=== PATIENT | male | born 1990 | race Caucasian/White ===

== ENCOUNTER 2025-02-13 16:09 | Emergency (ER) | payer MEDICAID, SELFPAY ==
[2025-02-13 16:56] VITALS: BP 127/79; PULSE 75; RESP 20; TEMP 36.7; O2SAT 97; BMI 20.9
--- NOTE | 2025-02-13 17:20 | EKG_ITS ---
[facility] Test Date: 2025-02-13 Pat Name: JAKE BARTH Department: Room: - Gender: Male [employer] Work[employer]: : 1990 Requested By: Lisset Zarate ([facility]) Cecy Order Number: [id number] Reading MD: Lisset Zarate ([facility]) Cecy Measurements Intervals [place] Rate: 79 P: 56 CO: 129 QRS: 77 QRSD: 99 T: 68 QT: 364 QTc: 418 Interpretive Statements SINUS RHYTHM WITH SINUS ARRHYTHMIA No previous ECG available for comparison /[id number]/S0/[id number].pdf
--- NOTE | 2025-02-13 17:23 | PD.EDRME ---
Rapid Medical Screening Exam RME Arrival date/time: 02/13/25 16:09 34-year-old male was sent over by his PCP for evaluation of possible incarcerated inguinal hernia. Patient reports he has had this inguinal hernia for 4 years. Worsening symptoms and pain for the last 3 days unable to reduce. I have greeted and performed a focused initial assessment of this patient. Initial appropriate labs ordered at this time. A comprehensive ED assessment and evaluation of the patient and analysis of all test and completion of medical decision making process will be conducted by additional ED provider. Chief Complaint: Back Pain/Injury Time Seen by Provider: 02/13/25 16:22 Vital signs: Vital Signs Temperature 98.0 F 02/13/25 16:56 Pulse Rate 75 02/13/25 16:56 Respiratory Rate 20 02/13/25 16:56 Blood Pressure 127/79 02/13/25 16:56 Pulse Oximetry (%) 97 02/13/25 16:56 Oxygen Delivery Method Room Air 02/13/25 16:56
[2025-02-13 17:50] LABS: Basophils # (Auto) 0.0 Thou/mm3 (0.0-0.2); Basophils % (Auto) 0 % (0-2.5); Eosinophils # (Auto) 0.2 Thou/mm3 (0.0-0.5); Eosinophils % (Auto) 2 % (0-10); Hematocrit 40.9 % (41.0-53.0); Hemoglobin 13.9 g/dL (13.5-16.0); Immature Granulocytes Auto 0.03 Thou/mm3 (0.00-0.00); Lymphocytes # (Auto) 4.0 Thou/mm3 (1.0-4.8); Lymphocytes % (Auto) 38 % (10-50); Mean Corpuscular HGB Conc 34.0 g/dl (31.0-37.0); Mean Corpuscular Hemoglobin 28.4 pg (25.0-35.0); Mean Corpuscular Volume 84 fL (80-100); Monocytes # (Auto) 0.6 Thou/mm3 (0.0-0.8); Monocytes % (Auto) 6 % (0-12); Neutrophils # (Auto) 5.6 Thou/mm3 (1.8-7.7); Neutrophils % (Auto) 54 % (37-80); Nucleated Red Blood Cell # 0.00 Thou/mm3 (0.00-0.00); Nucleated Red Blood Cell % 0 /100 WBC (0); Platelet Count 328 Thou/mm3 (140-440); RDW Standard Deviation 39.5 fL (35.1-43.9); Red Blood Count 4.90 Miln/mm3 (4.50-5.90); White Blood Count 10.4 Thou/mm3 (3.8-10.6)
[2025-02-13 18:00] VITALS: BP 138/71; PULSE 88; RESP 18; TEMP 36.8; O2SAT 99
[2025-02-13 18:05] LABS: INR 1.0 (0.9-1.3); Prothrombin Time 11.3 Seconds (9.0-12.2)
[2025-02-13 18:13] LABS: Alanine Aminotransferase < 7 U/L (10-49); Albumin, Serum 4.5 gm/dL (3.5-5.0); Albumin/Globulin Ratio 1.7 (1.2-2.2); Alkaline Phosphatase 82 U/L (46-116); Anion Gap 10 (7-16); Aspartate Amino Transferase 12 U/L (0-34); BUN/Creatinine Ratio 14 Ratio (12-20); Bilirubin,Total 0.2 mg/dL (0.3-1.2); Blood Urea Nitrogen 11 mg/dL (9-23); Calcium 9.4 mg/dL (8.3-10.6); Calcium (Corrected) 9.4 mg/dL (8.5-10.1); Carbon Dioxide 27.8 mMol/L (20.0-31.0); Chloride 104 mMol/L (98-107); Creatinine (Component) 0.8 mg/dL (0.6-1.3); Estimated Creatinine Clearance 124.0 mL/min (>60); Globulin 2.6 gm/dL (2.3-3.5); Glucose 101 mg/dL (74-106); Magnesium 1.8 mg/dL (1.6-2.6); Osmolality,Calculated 282 (275-295); Potassium 3.2 mMol/L (3.4-5.1); Sodium 142 mMol/L (136-145); Total Protein 7.1 gm/dL (5.7-8.2); eGFR > 60 See Note
--- NOTE | 2025-02-13 19:50 | PC.NURSE ---
NO ANSWER FOR REVIEW
--- NOTE | 2025-02-13 20:09 | PC.NURSE ---
NO ANSWER FOR REVIEW
== END 2025-02-13 20:11 | disposition left against medical advice (07) ==
PROVIDERS: Nurse Practitioner Primary Care; Emergency Provider Emergency Medicine; PCP Physician Assistant
DX: K40.90 Unilateral inguinal hernia, without obstruction or gangrene, not specified as recurrent (principal); I49.8 Other specified cardiac arrhythmias; Z53.29 Procedure and treatment not carried out because of patient's decision for other reasons
CPT/HCPCS: 36415; 80053; 80307; 81001; 83735; 83880; 85025; 85610; 93005; 99283

== ENCOUNTER → 2025-04-18 | Outpatient (CLI) | payer OTHER, SELFPAY ==
--- NOTE | 2025-04-18 14:00 | XR_ITS ---
Examination: Testicular sonography complete Technique: Grayscale sonographic images testes, assessment arterial inflow venous outflow Doppler spectral analysis carful analysis Date and time: April 18, 2025, 1531 hrs. Indications: Bilateral testicular pain beginning 3 years ago Findings: Right testis 4.4 cm epididymis 1.3 cm Multiple right epididymal cysts, the largest 10 mm. Large varicocele, 4.9 cm Cysts lateral to the right testicle 2.0 cm No solid testicular mass Arterial flow testicle Left testis 4.6 cm epididymis 1.6 cm Arterial flow testicle. No testicular mass Impression: No testicular torsion or solid testicular mass Multiple benign epididymal cysts. Moderate right varicocele Recommend one week follow-up follow-up testicular sonography
--- NOTE | 2025-04-18 15:07 | XR_ITS ---
Examination: Pelvic ultrasound, transabdominal, complete Technique: Transabdominal ultrasound of the pelvis performed using grayscale imaging Date and time of exam: April 18, 2025, 1519 hrs. Indications: Right lower abdominal pain beginning several years ago. Findings: Prostate 3.4 x 3.7 x 4.5 cm: 29 cc, no prostate nodules No pulmonary defect noted Impression: No prostate nodules No hernia is identified
== END | disposition home or self-care (01) ==
PROVIDERS: PCP Nurse Practitioner Family; Referring Provider Nurse Practitioner Family; Visit Provider Nurse Practitioner Family
DX: R10.31 Right lower quadrant pain (principal); N50.3 Cyst of epididymis; I86.1 Scrotal varices
CPT/HCPCS: 76856; 76870